=== PATIENT | male | born 1945 | race Caucasian/White ===

== ENCOUNTER 2023-01-21 12:39 | Emergency (ER) | payer MEDICARE ==
[~2023-01-21] VITALS: Ht 188 cm; Wt 93.8 kg
[2023-01-21 13:24] VITALS: BP 168/85
[2023-01-21 13:30] VITALS: BP 154/74
[2023-01-21 13:45] VITALS: BP 150/70
[2023-01-21 14:00] VITALS: BP 153/72
[2023-01-21] MEDS ORDERED: ZYRTEC10 MG PO (15:07)
[2023-01-21] MEDS ORDERED: AMOX/K CLAV875 M1 PO (15:07)
[2023-01-21] MEDS ORDERED: BENZONATATE200 MG PO (15:07)
[2023-01-21] MEDS ORDERED: ALLERGY RE50 MCG/ACT (15:07)
[2023-01-21 15:11] VITALS: BP 153/72
== END 2023-01-21 15:15 | disposition home or self-care (01) ==
LOC: ED 12:39
DX: J02.9 Acute pharyngitis, unspecified (principal); E11.9 Type 2 diabetes mellitus without complications; Z20.822 Contact with and (suspected) exposure to COVID-19